=== PATIENT | female | born 1975 | race Caucasian/White ===

== ENCOUNTER 2019-04-13 00:25 | Emergency (ER) | payer OTHER ==
[~2019-04-13] VITALS: Ht 157.5 cm; Wt 103.4 kg
[2019-04-13] MEDS ORDERED: GLIPIZIDE ER10 MG PO (00:39)
[2019-04-13] MEDS ORDERED: PROTONIX40 MG PO (00:40)
[2019-04-13] MEDS ORDERED: WELLBUTRIN XL150 MG PO (00:40)
[2019-04-13] MEDS ORDERED: METFORMIN HCL500 M2 PO (00:40)
[2019-04-13] MEDS ORDERED: PROZAC40 MG PO (00:40)
[2019-04-13] MEDS ORDERED: OXYTROL FOR WO1 EACH TD (00:41)
[2019-04-13] MEDS ORDERED: ZITHROMAX250 MG PO (04:40)
[2019-04-13] MEDS ORDERED: PROVENTIL HFA6.7 GM INH (04:40)
[2019-04-13] MEDS ORDERED: PREDNISONE20 MG PO (04:40)
[2019-04-13] MEDS ORDERED: ALBUTEROL2.5 MG/3 M INH (04:40)
--- NOTE | 2019-04-14 21:31 | EKG ---
[facility] [address] [facility] [place] [address] Signed Sinus tachycardia Otherwise normal ECG No previous ECGs available Confirmed by DIMITRY GELLER MD ([id number]) on 04/14/2019 9:31:44 PM Electronically Signed By: DIMITRY GELLER MD 04/14/19 2131 PATIENT NAME: SEN LANGSTON Electrocardiogram DATE OF : 75 PHYSICIAN: DIMITRY GELLER MD REPORT #: [id number] REPORT IS CONFIDENTIAL AND NOT TO BE RELEASED WITHOUT AUTHORIZATION
== END 2019-04-13 05:00 | disposition home or self-care (01) ==
LOC: ED 00:25
DX: J44.1 Chronic obstructive pulmonary disease with (acute) exacerbation (principal); J06.9 Acute upper respiratory infection, unspecified; E11.65 Type 2 diabetes mellitus with hyperglycemia; Z87.891 Personal history of nicotine dependence; Z88.2 Allergy status to sulfonamides
CPT/HCPCS: 71045; 80053; 82947; 83735; 84484; 85025; 85379; 93005; 93010; 94640; 96374; 96375; 99285-25; J0456; J1815; J2930; J7060

== ENCOUNTER 2019-07-28 15:58 | Emergency (ER) | payer OTHER ==
[~2019-07-28] VITALS: Ht 157.5 cm; Wt 103.4 kg
[~2019-07-28 15:58] MED LIST: ALBUTEROL2.5 MG/3 M INH; GLIPIZIDE ER10 MG PO; METFORMIN HCL500 M2 PO; OXYTROL FOR WO1 EACH TD; PREDNISONE20 MG PO; PROTONIX40 MG PO; PROVENTIL HFA6.7 GM INH; PROZAC40 MG PO; WELLBUTRIN XL150 MG PO; ZITHROMAX250 MG PO
[2019-07-28] MEDS ORDERED: CLINDAMYCIN HC300 MG PO (18:29)
== END 2019-07-28 18:56 | disposition home or self-care (01) ==
LOC: ED 15:58
DX: L03.314 Cellulitis of groin (principal); E11.9 Type 2 diabetes mellitus without complications; J44.9 Chronic obstructive pulmonary disease, unspecified; F17.200 Nicotine dependence, unspecified, uncomplicated; Z88.2 Allergy status to sulfonamides; Z79.52 Long term (current) use of systemic steroids; Z79.899 Other long term (current) drug therapy; Z79.84 Long term (current) use of oral hypoglycemic drugs
CPT/HCPCS: 99283; 99406

== ENCOUNTER 2019-07-31 18:44 | Inpatient (IN) | payer OTHER ==
[~2019-07-31] VITALS: Ht 157.5 cm; Wt 98.4 kg
[~2019-07-31 18:44] MED LIST changes: +CLINDAMYCIN HC300 MG PO; -GLIPIZIDE ER10 MG PO; +GLIPIZIDE10 MG PO; +OXYBUTYNIN CHLOR5 MG PO; -OXYTROL FOR WO1 EACH TD; +PROZAC20 MG PO; -PROZAC40 MG PO
--- OUTSIDE RECORDS SUMMARY | 2019-07-31 18:48 | XMS ---
PreManage Notification: SEN LANGSTON Security Parts Remover Events No recent Security Events currently on file CRITERIA MET - [facility] - 2 Visits in 30 Days CARE PROVIDERS There are no care providers on record at this time. Ruben has no Care Guidelines for this patient. Terra VISIT COUNT (12 MO.) [address] [facility] TOTAL 3 NOTE: Visits indicate total known visits. ED/C VISIT TRACKING (12 MO.) 07/31/2019 18:45 [facility] TYPE: Emergency COMPLAINT: - SKIN PROBLEM 07/28/2019 15:58 [facility] TYPE: Emergency COMPLAINT: - POSS ABSCESS 04/13/2019 00:26 [facility] [place] TYPE: Emergency COMPLAINT: - CHEST TIGHTNESS,TINGLING DIAGNOSES: - Allergy status to sulfonamides status - Personal history of nicotine dependence - Acute upper respiratory infection, unspecified - Other chest pain - Type 2 diabetes mellitus with hyperglycemia - Chronic obstructive pulmonary disease with (acute) exacerbation INPATIENT VISIT TRACKING (12 MO.) No inpatient visits to display in this time frame [email or web address]
--- NOTE | 2019-08-01 15:44 | CONS ---
[facility] [address] [place], [place] [address] Signed DATE OF CONSULTATION: 08/01/2019 CHIEF COMPLAINT: Left groin pain. HISTORY OF PRESENT ILLNESS: Mini is a 43-year-old, obese, diabetic female, who has at least six days of pain and swelling in the left groin. It is erythematous and warm. She has been through this previously when she lived in [place]. She [facility] and the NuGauze dressing had fallen out. Apparently, a surgeon then drained and placed a drain underneath her skin. She has now moved out to [place], [place]. She had been to the emergency room about 6 days ago and started on some clindamycin. It has continued to get worse. She came back to the emergency room and of course was admitted overnight to the Internal Medicine Service. Her white count is already better from 16 down to 12.6. Her lactic acid was little high at 2.4. It is now improved at 1.2. Blood cultures were drawn. Blood sugars were initially 505, down into the 300s, and this morning it was 177. In the meantime, she received Rocephin and vancomycin. I have been asked to see her as a general surgeon on-call. She had an ultrasound done and there was a fluid collection of 4 cm x 0.7 cm x 1.1 cm in that left groin. Overall, she has improved. PAST MEDICAL HISTORY: Diabetes, COPD, bronchitis, gastroesophageal reflux disease, urinary urgency, depression and anxiety. PAST SURGICAL HISTORY: Includes incision and drainage of left groin abscess in 2016. SOCIAL HISTORY: She smokes pack of cigarettes a day. She does not drink. Mini prefers the [facility]. FAMILY HISTORY: Diabetes, cardiomyopathy, ulcerative colitis, non-Hodgkin's lymphoma, depression, and substance abuse. REVIEW OF SYSTEMS: She had 10 systems reviewed and really nothing new to add. ALLERGIES: Sulfa caused her nausea and she prefers not to take narcotics and generally uses ibuprofen. Electronically Signed By: RAMOS LANDIN MD 08/01/19 1544 PATIENT NAME: MINI LANGSTON CONSULTATION DATE OF : 75 REPORT #: [id number] PHYSICIAN: RAMOS LANDIN MD PCP: DIMITRY GELLER MD REPORT IS CONFIDENTIAL AND NOT TO BE RELEASED WITHOUT AUTHORIZATION [facility] [address] [place] [id number] Signed MEDICATIONS: Prednisone 40 mg p.o. daily for the last 4 days for bronchitis, azithromycin, albuterol, clindamycin, glipizide, metformin, fluoxetine, bupropion, Protonix, and oxybutynin. PHYSICAL EXAMINATION: VITAL SIGNS: Blood pressure 112/66, heart rate 92, respiratory rate 20, temperature 98.2. She is 98% on room air. She is 5 feet 2 inches at 98 kg. GENERAL: Mini is a 43-year-old female, lying supine in her ICU bed. Our nurse is with us currently. She does not appear systemically ill or toxic. She is very attentive and actually a pretty good historian. She gave me quite a bit of detail of her experience in [place]. LUNGS: Clear to auscultation bilaterally. HEART: Regular rate and rhythm without murmurs. ABDOMEN: Obese, but soft. In the left groin, right in the crease, she has an area of 3 or 4 cm very indurated, very warm, very tender and it spreads out 10-12 cm from that. I see a couple of punctate areas in the skin, but no obvious draining pus at this point. LABORATORY DATA: Her white blood count was 16 and is now down to 12.6, hemoglobin is 14, is now 12.7, neutrophils are 64. BUN 7, creatinine 0.49, glucose was 505, it is now 177. Lactic acid was 2.4, it is now 1.2. Liver function tests are unremarkable. Albumin is good at 3.8. Her blood cultures were drawn yesterday and pending. Hemoglobin A1c is pending. RADIOGRAPHIC STUDIES: An ultrasound of that groin was performed and she has a 4 cm x 0.7 cm x 1.1 cm fluid collection. ASSESSMENT AND PLAN: Mini is a 43-year-old, obese, diabetic female, who presents with recurrent left groin abscess. I explained to Mini, we are going to take her down to the operating room under general anesthesia, then we will open this up and use packing. She specifically requested no drain. That is fine. This can heal in secondarily. She will need to be in the hospital at least a few days for the IV antibiotics and she can be transitioned over to p.o. antibiotics, specifically with respect to the wound cultures that we will take at the time of surgery. She has expressed understanding and agrees above plan. Ramos Landin MD ALB/MODL /[id number] Electronically Signed By: RAMOS LANDIN MD 08/01/19 1544 PATIENT NAME: MINI LANGSTON CONSULTATION DATE OF : 75 REPORT #: [id number] PHYSICIAN: RAMOS LANDIN MD PCP: DIMITRY GELLER MD REPORT IS CONFIDENTIAL AND NOT TO BE RELEASED WITHOUT AUTHORIZATION [address] [place] [address] Signed cc: Ramos Landin MD Copies: RAMOS LANDIN MD ~ Electronically Signed By: RAMOS LANDIN MD 08/01/19 1544 PATIENT NAME: MINI LANGSTON CONSULTATION DATE OF : 75 REPORT #: [id number] PHYSICIAN: RAMOS LANDIN MD PCP: DIMITRY GELLER MD REPORT IS CONFIDENTIAL AND NOT TO BE RELEASED WITHOUT AUTHORIZATION
--- NOTE | 2019-08-02 06:31 | OR ---
[facility] [address] [place], [place] [address] Signed DATE OF OPERATION: 08/01/2019 SURGEON: Ramos Landin MD PREOPERATIVE DIAGNOSIS: Left inguinal/groin abscess. POSTOPERATIVE DIAGNOSIS: Left inguinal/groin abscess. PROCEDURES PERFORMED: 1. Incision and drainage of left groin abscess. 2. Deep wound cultures. ESTIMATED BLOOD LOSS: None. INDICATIONS: Mini is a 43-year-old, obese, uncontrolled diabetic, who for at least 6 days has had increasing pain, erythema, and warmth in her left groin. She went through this in 2015 while living in [place]. She came to our emergency room when it 1st started and then she was given clindamycin. Unfortunately, she failed her outpatient p.o. antibiotics. She came back to the emergency room and it continued to worsen. She was found to have a white count of 16,000 with a lactic acid of 2.4. Also, blood sugar was 505. An ultrasound was performed, which showed a 4 cm x 0.7 cm x 1.1 cm fluid collection. She was admitted to the Internal Medicine Service. She was given Rocephin and vancomycin. She was hydrated overnight. By morning, she was actually feeling much better. White count was down to 12.6 and her lactic acid had dropped to 1.2. They had her blood sugars all the way down to 177. Blood cultures have been sent yesterday, and of course, they are still pending. I was asked to see her as a general surgeon on-call for consideration of incision and drainage of the abscess. I met with Mini in her ICU room. She described her surgery down in [place]. They left drain in place. She asked me specifically not to use a drain. I explained to Mini we would not be leaving a drain. We will leave the incision open to heal in secondarily and we will use Dakin's soaked gauze at least for the 1st few days to help sterilize the wound with ongoing IV antibiotics. We will adjust that based on her wound cultures. She understands the nature of the surgery. She understands there is risk including, but not limited to bleeding, infection, scarring, change in contour of the skin as well as recurrent abscess in the same or other locations. She has expressed understanding would like to proceed. Electronically Signed By: RAMOS LANDIN MD 08/02/19 0631 PATIENT NAME: MINI LANGSTON OPERATIVE REPORT DATE OF : 75 REPORT #: [id number] PHYSICIAN: RAMOS LANDIN MD PCP: DIMITRY GELLER MD REPORT IS CONFIDENTIAL AND NOT TO BE RELEASED WITHOUT AUTHORIZATION [facility] [address] [place], [place] [address] Signed PROCEDURE NOTE: I met with Mini in the preop area with our preoperative nurse. Mini and I were obviously able to easily identify that area in right in her left groin crease near the femoral nerve artery and vein. We marked that appropriately. After this, Mini was taken in the operating room and placed in the supine position under general endotracheal tube anesthesia. Her legs were brought up in the frog-leg position. Appropriate padding and monitoring were placed. SCDs were utilized. She is on preoperative Lovenox and antibiotics already. No need for a Red catheter. She was then prepped and draped in the usual sterile fashion. We could easily see whether abscess was coming to the surface of the skin right in the groin crease. We used a 3 cm elliptical incision around that area and went down through the indurated tissue until we broke into the abscess cavity. Deep wound cultures were taken. The wound was irrigated and suctioned out until clear with warm antibiotic saline solution. Digital examination was undertaken to break up all loculations. Probably 20-30 mL of pus had been evacuated total. We used a 4 inch wide Kerlix gauze roll soaked in Dakin's solution, and we packed the wound with fat and it was covered with just simple dry gauze and tape. After this, Mini was awakened from anesthesia, extubated in the OR, and taken into recovery room in stable condition. Ramos Landin MD ALB/MODL /[id number] cc: MD Ramos Jarrett MD Copies: DIMITRY GELLER MD, ANDREW L MD ~ Electronically Signed By: RAMOS LANDIN MD 08/02/19 0631 PATIENT NAME: MINI LANGSTON OPERATIVE REPORT DATE OF : 75 REPORT #: [id number] PHYSICIAN: RAMOS LANDIN MD PCP: DIMITRY GELLER MD REPORT IS CONFIDENTIAL AND NOT TO BE RELEASED WITHOUT AUTHORIZATION
[2019-08-02] MEDS ORDERED: QVAR REDIHALE10.6 GM INH (11:20)
[2019-08-02] MEDS ORDERED: SPIRIVA18 MCG INH (11:23)
[2019-08-04] MEDS ORDERED: DOXYCYCLINE HY100 MG PO (10:24)
[2019-08-04] MEDS ORDERED: CLINDAMYCIN HC300 MG PO (10:27)
[2019-08-04] MEDS ORDERED: PROBIOTIC1 EAC1 PO (10:28)
[2019-08-04] MEDS ORDERED: LANTUS100 UNITS/ SUB-Q (10:30)
[2019-08-04] MEDS ORDERED: NICOTINE PATCH1 EACH TD (10:30)
[2019-08-04] MEDS ORDERED: SALINE WOUND W210 M1 MISC (10:35)
== END 2019-08-04 13:07 | disposition home or self-care (01) | DRG 854 ==
LOC: ED 18:44 → CCU 21:37 → MS 08-01 13:04
PROVIDERS: Colon & Rectal Surgery; ADMIT Internal Medicine
PROC: 0J9C0ZZ Drainage of Pelvic Region Subcutaneous Tissue and Fascia, Open Approach (ICD-10-PCS; principal; 2019-08-01 10:00)
DX: A41.89 Other specified sepsis (principal); L03.314 Cellulitis of groin; L02.214 Cutaneous abscess of groin; K52.1 Toxic gastroenteritis and colitis; E66.01 Morbid (severe) obesity due to excess calories; E11.65 Type 2 diabetes mellitus with hyperglycemia; F17.210 Nicotine dependence, cigarettes, uncomplicated; K21.9 Gastro-esophageal reflux disease without esophagitis; J41.0 Simple chronic bronchitis; R39.15 Urgency of urination; F41.8 Other specified anxiety disorders; T38.3X5D Adverse effect of insulin and oral hypoglycemic [antidiabetic] drugs, subsequent encounter; Z91.14 Patient's other noncompliance with medication regimen; Z88.2 Allergy status to sulfonamides; Z79.899 Other long term (current) drug therapy; Z79.52 Long term (current) use of systemic steroids; Z68.39 Body mass index [BMI] 39.0-39.9, adult; Z79.84 Long term (current) use of oral hypoglycemic drugs
CPT/HCPCS: 00400; 36415; 76881; 80048; 80053; 80202; 83036; 83605; 83735; 84100; 85007; 85025; 85032; 85610; 85730; 87040; 94640; 94760; 96365; 96366; 99284-25; 99406; J0696; J1100; J1650; J1815; J1885; J2405; J2704; J3010; J3370; J3475; J7030; J7060; J7120

== ENCOUNTER 2019-12-22 10:35 | Inpatient (IN) | payer OTHER ==
[~2019-12-22] VITALS: Ht 157.5 cm; Wt 96.6 kg
[~2019-12-22 10:35] MED LIST changes: +DOXYCYCLINE HY100 MG PO; +LANTUS100 UNITS/ SUB-Q; +NICOTINE PATCH1 EACH TD; +PROBIOTIC1 EAC1 PO; +QVAR REDIHALE10.6 GM INH; +SALINE WOUND W210 M1 MISC; +SPIRIVA18 MCG INH
--- OUTSIDE RECORDS SUMMARY | 2019-12-22 10:38 | XMS ---
PreManage Notification: SEN LANGSTON Security Awning Maker Events No recent Security Events currently on file CRITERIA MET - Group Notification - [facility] - Has Care Guidelines - History of Sepsis Dx CARE PROVIDERS There are no care providers on record at this time. Ruben has no Care Guidelines for this patient. Care History Medical/Surgical 08/01/2019 [facility] CASE MANAGEMENT REFERRAL MADE- PATIENT HAS [facility] AND NO PCP. E.D. VISIT COUNT (12 MO.) 4 [facility] TOTAL 4 NOTE: Visits indicate total known visits. ED/UCC VISIT TRACKING (12 MO.) 12/22/2019 10:36 [facility] TYPE: Emergency COMPLAINT: - ABCESS ON BACKSIDE 07/31/2019 18:45 [facility] TYPE: Emergency COMPLAINT: - SKIN PROBLEM 07/28/2019 15:58 [facility] TYPE: Emergency COMPLAINT: - POSS ABSCESS DIAGNOSES: - Cellulitis of groin - Chronic obstructive pulmonary disease, unspecified - 1 Type 2 diabetes mellitus without complications - manager wellness (current) use of systemic steroids - Other conveyancer (current) drug therapy - Cutaneous abscess of groin - long-term (current) use of oral hypoglycemic drugs - Nicotine dependence, unspecified, uncomplicated - Allergy status to sulfonamides status 04/13/2019 00:26 [facility] TYPE: Emergency COMPLAINT: - CHEST TIGHTNESS,TINGLING DIAGNOSES: - Allergy status to sulfonamides status - Personal history of nicotine dependence - Acute upper respiratory infection, unspecified - Other chest pain - 1 Type 2 diabetes mellitus with hyperglycemia - Chronic obstructive pulmonary disease w (acute) exacerbation INPATIENT VISIT TRACKING (12 MO.) 07/31/2019 21:[address] [facility] [place] TYPE: Medical Surgical COMPLAINT: - SEPSIS DIAGNOSES: - Cellulitis of groin - Allergy status to sulfonamides status - Body mass index (BMI) 39.0-39.9, adult - long-term (current) use of oral hypoglycemic drugs - Cutaneous abscess of groin - Other specified anxiety disorders - Nicotine dependence, cigarettes, uncomplicated - Body mass index (BMI) 39.0-39.9, adult - Gastro-esophageal reflux disease without esophagitis - Other conveyancer (current) drug therapy - Urgency of urination - Toxic gastroenteritis and colitis - long-term (current) use of systemic steroids - Cutaneous abscess of groin - Morbid (severe) obesity due to excess calories - Sepsis, unspecified organism Sepsis, u - Patient's other noncompliance with medication regimen - Cellulitis of groin - Simple chronic bronchitis - Toxic gastroenteritis and colitis - 1 Type 2 diabetes mellitus with hyperglycemia - Other specified sepsis Other spe - Nicotine dependence, cigarettes, uncomplicated - manager wellness (current) use of systemic steroids - Urgency of urination - Other conveyancer (current) drug therapy - Gastro-esophageal reflux disease without esophagitis - Other specified sepsis Other spe - Adverse effect of insulin and oral hypoglycemic drugs, subs - long-term (current) use of oral hypoglycemic drugs - Allergy status to sulfonamides status - Simple chronic bronchitis - 1 Type 2 diabetes mellitus with hyperglycemia - Other specified anxiety disorders - Patient's other noncompliance with medication regimen - Adverse effect of insulin and oral hypoglycemic drugs, subs - Morbid (severe) obesity due to excess calories [email or web address]
[2019-12-22] MEDS ORDERED: NOVOLOG100 UNIT/2 SQ (11:16)
--- NOTE | 2019-12-22 12:17 | NUR ---
REPORT RECIEVED FROM NANCY PAREDES, IN ER.
--- NOTE | 2019-12-22 12:59 | NUR ---
PATIENT ADMITTED TO MED SURG.
--- NOTE | 2019-12-22 13:04 | NUR ---
FINGER STICK BLOOD GLUCOSE DONE AND IS 497.
--- NOTE | 2019-12-22 13:47 | NUR ---
TODD GANDHI FROM LAB CALLED AT 1342 FOR CRITICAL LAB VALUE OF BLOOD GLUCOSE OF 567. CCU CALLED AND PRIMARY NURSE NOTIFIED. DR GELLER CALLED AT 1344 AND ALSO NOTIFIED, NO NEW ORDERS.
--- NOTE | 2019-12-22 13:50 | NUR ---
PT ARRIVES TO CCU VIA BED WITH TWO MED/SURG NURSES. PT IS ALERT AND ORIENTED AT THIS TIME. MOTHER IS AT THE BEDSIDE.
--- NOTE | 2019-12-22 14:10 | NUR ---
SECOND IV SITE OBTAINED BY SHERRIE CRUZ. IV BOLUS RUNNING AT THIS TIME.
--- NOTE | 2019-12-22 14:17 | NUR ---
BLOOD CULTURES DRAWN. LONG ACTING AND SHORT ACTING INSULIN GIVEN. PT BASSAM WELL.
--- NOTE | 2019-12-22 14:30 | NUR ---
IN ROOM TO EXAMINE PT, THIS RN AND SHARLA CHYRON OPERATOR AT THE BEDSIDE.
--- NOTE | 2019-12-22 15:00 | NUR ---
PT PLACED ON 2L VIA OXY MASK FOR DESAT TO 88-87% ON ROOM AIR
--- NOTE | 2019-12-22 15:36 | NUR ---
LATE NOTE FROM 1327 DR. GELLER IN TO SEE PATIENT, AFTER CALL TO DR. LANDIN REGARDING BG FINGER STICK OF 497. LR BOLUS INFUSING PER DR. GELLER. PATIENT IS TO TRANSFER TO CCU R/T SEPSIS.
--- NOTE | 2019-12-22 16:42 | NUR ---
PT LAYING IN BED RESTING WATCHING TV WITH HER PARENTS AT THE BEDSIDE.
--- NOTE | 2019-12-22 18:21 | NUR ---
PT SITTING UP IN BED WATCHING TV, ABLE TO BASSAM BLOOD DRAW EASILY. PT GIVEN INSULIN. PT GIVEN SUGAR FREE LEMONAID AND CHICKN BROTH PER HER REQUEST. PT REMAINS ALERT AND ORIENTED X4, RATES PAIN AT 2/10, DENIES NAUSEA AND SOB. PT APPEARS CALM AND RELAXED.
--- NOTE | 2019-12-22 19:25 | NUR ---
SHIFT REPORT RECEIVED. PATIENT RESTING IN BED. FAMILY AT BEDSIDE. PATIENT DROWSY. DENIES PAIN OR ANY NEEDS.
--- NOTE | 2019-12-22 20:00 | NUR ---
PATIENT IS ORIENTED, BUT DROWSY. DENIES PAIN. ASSISTED PATIENT TO REPOSITION IN BED. LUNGS ARE COARSE THROUGHOUT WITH EXP WHEEZES IN CELI UPPER LOBES. NEB TREATMENT PROVIDED PER RT REQUEST. PATIENT CONTINUES TO SOUND COARSE THROUGHOUT, WITHOUT WHEEZES. TOLERATES ROOM AIR WHILE AWAKE. PATIENT APPEARS FLUSHED, HOT TO THE TOUCH. ORAL TEMP 99.1 F. ROOM TEMP REDUCED PER REQUEST. IV FLUIDS AND ABX PER ORDER, IV SITES WNL X2. DISCUSSED ABX ORDERS WITH PATIENT AND HER MOTHER. PITT CARE PROVIDED. NYSTATIN APPLIED TO RYAN AREA, WHICH IS RED. PATIENT REQUEST JELLO WHICH WAS PROVIDED. NO OTHER NEEDS AT THIS TIME.
--- NOTE | 2019-12-22 20:00 | NUR ---
PATIENT IS ORIENTED, BUT DROWSY. DENIES PAIN. ASSISTED PATIENT TO REPOSITION IN BED. SMALL AMOUNT OF YELLOW DRAINAGE NOTED FROM WOUND ON RIGHT BUTTOCK. CHUCKS PAD PLACED ON PATIENT. LUNGS ARE COARSE THROUGHOUT WITH EXP WHEEZES IN CELI UPPER LOBES. NEB TREATMENT PROVIDED PER RT REQUEST. PATIENT CONTINUES TO SOUND COARSE THROUGHOUT, WITHOUT WHEEZES. TOLERATES ROOM AIR WHILE AWAKE. PATIENT APPEARS FLUSHED, HOT TO THE TOUCH. ORAL TEMP 99.1 F. ROOM TEMP REDUCED PER REQUEST. IV FLUIDS AND ABX PER ORDER, IV SITES WNL X2. DISCUSSED ABX ORDERS WITH PATIENT AND HER MOTHER. PITT CARE PROVIDED. NYSTATIN APPLIED TO RYAN AREA, WHICH IS RED. PATIENT REQUEST JELLO WHICH WAS PROVIDED. NO OTHER NEEDS AT THIS TIME.
--- NOTE | 2019-12-22 20:42 | NUR ---
NOTIFIED OF CT SCAN RESULTS. NO NEW ORDERS.
--- NOTE | 2019-12-22 21:27 | NUR ---
IV FLUSHED ON UPPER LEFT FOREARM. SITE WNL. VANCO STARTED PER ORDERS. EDUCATED PATIENT TO ALERT STAFF TO ANY CONCERNS OR PAIN AT IV SITE. PATIENT VERBALIZED UNDERSTANDING. NO NEEDS AT THIS TIME. BLOOD GLUCOSE 207, SSI PER ORDERS.
--- NOTE | 2019-12-23 00:05 | NUR ---
PATIENT HAS BEEN SLEEPING SOUNDLY. VS STABLE. PATIENT WOKE EASILY TO VOICE. DENIES PAIN OR ANY NEEDS. IV FLUIDS PER ORDER, SITE WNL. ACCU CHECK, BG 201. SSI PER ORDERS. URINE OUTPUT QS, SHEN COLORED. ALLOWED PATIENT TO REST. CALL LIGHT IN REACH.
--- NOTE | 2019-12-23 02:00 | NUR ---
PATIENT SLEEPING SOUNDLY. ABX STARTED PER ORDER. SITES WNL X2.
--- NOTE | 2019-12-23 03:20 | NUR ---
UP TO BSC WITH STAND BY ASSIST. HAD LIQ STOOL. WHILE DOING RYAN CARE FOR PT COULD PALP FIRM MASS R BUTTOCKS. RYAN AREA IS VERY SINSITIVE. PT COUHG WHILE UP AND FEELS LIKE SHE IS GOING TO HAVE AN ASTHMA ATTACK. RT CALLED FOR NEB TX PT REUQESTING RESCUE INHALER.
--- NOTE | 2019-12-23 03:30 | NUR ---
PATIENT BACK TO BED AFTER HAVING BM. REPORTS PAIN WITH MOVEMENT IN RIGHT GLUTEAL AREA. DENIES NEED FOR PRN MEDS. ASSISTED TO POSITION FOR COMFORT. PATIENT FEELS SLIGHTLY SOB. REQUESTED TO USE HOME INHALER. RT CONTECTED FOR PRN NEB TREATMENT INSTEAD. PATIENT REPORTS IMPROVEMENT POST TREATMENT. BLOOD GLUCOSE IMPROVED 148, SSI PER ORDER. URINE OUTPUT QS. URINE IS SHEN COLORED.
--- NOTE | 2019-12-23 05:49 | NUR ---
PATIENT DESAT TO 80'S WHILE SLEEPING. 2L NC IN PLACE.
--- NOTE | 2019-12-23 06:30 | NUR ---
PATIENT REPORTS BURNING AND ITCHING IN GROIN AND RYAN AREA. NYSTATIN POWER AND DISCHARGE CLEANED WITH BERRIER WIPES AND SKIN PROTECTANT APPLIED. PATIENT REPORTS SOME RELIEF. PATIENT SIGNED CONSENT AND DENIES ANY QUESTIONS. PRE-PROCEDURE WIPES PROVIED. PATIENT REQUEST WAITING TO WIPE DOWN AT THIS TIME. FAMILY IN TO VISIT PATIENT.
--- NOTE | 2019-12-23 08:09 | CONS ---
[facility] [address], [place] [address] Signed DATE OF CONSULTATION: 12/22/2019 CHIEF COMPLAINT: Right gluteal swelling and pain. HISTORY OF PRESENT ILLNESS: Mini is a 44-year-old obese diabetic female, who I met in July of last year. At that time, she had a groin abscess that required incision and drainage. She had presented in almost identical manner. She tells me, three days ago, she met with her rounding machine operator and had a full pelvic exam. At that time, she said she was feeling fine. There was some concern she might have perineal eczema rather than moist fungal type infection. She was given what sounds like triamcinolone cream to be used in that area. She has talked about Tuesday and earlier today where the pain and swelling to the right side of her gluteal crease came on rather rapidly. As before, she tells us that she is noncompliant with her medications and checking her blood sugars. Her mom realized her mouth was quite dry and that she was dehydrated. She brought her to the emergency room for evaluation. I had been called earlier today by the emergency room physician about a recurrent perirectal/perianal abscess. The patient had eaten at around 9:30 this morning, so we are planning to do her surgery around 3 or 3:30 in the afternoon. After discussion with the ER physician, we put her on the Med-Surg floor for observation. The nurse did call me with concerns of tachycardia and blood sugars between 450 and over 500. Consequently, we had our Internal Medicine Service see her right away and I came directly to the hospital. In the meantime, she has had an IV started and she is receiving Zosyn. She will be getting her Flagyl soon. She has been started on her insulin and she has been ordered normal saline 3 L bolus. In the meantime, her labs have come back, and we can see the white blood cell count is up at 24,000, but she is certainly dehydrated with a hemoglobin 17, although the BUN and creatinine are fine, but her blood sugar is 567 and the lactic acid is pending along with the blood cultures. Overall, she is already starting to feel better with the IV fluids. 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 PAST SURGICAL HISTORY: Incision and drainage of left groin abscess in 2015 and again in July 2019. SOCIAL HISTORY: She smokes a pack of cigarettes a day. She does not drink. She prefers our local [facility]. She lives with her mother. She does have upper and lower dentures, but generally just wears the upper dentures. 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 Dr. Dimitry Geller is her primary care provider. Electronically Signed By: RAMOS LANDIN MD 12/23/19 0809 PATIENT NAME: MINI LANGSTON CONSULTATION DATE OF : 75 REPORT #: [id number] PHYSICIAN: RAMOS LANDIN MD PCP: DIMITRY GELLER MD REPORT IS CONFIDENTIAL AND NOT TO BE RELEASED WITHOUT AUTHORIZATION [address] [address] Signed FAMILY HISTORY: Diabetes, cardiomyopathy, ulcerative colitis, non-Hodgkin's lymphoma, depression, and substance abuse. REVIEW OF SYSTEMS: She had 10 systems reviewed and the pertinent positives are included in history of present illness. Unfortunately, she remains noncompliant with her medications including her insulin. She told me that metformin gave her diarrhea, so that has been discontinued. ALLERGIES: Sulfa cause nausea. Metformin cause diarrhea. She avoids narcotics and tries to use ibuprofen. MEDICATIONS: NovoLog, Lantus, albuterol, fluoxetine, and previously glipizide and bupropion, Protonix and oxybutynin. PHYSICAL EXAMINATION: VITAL SIGNS: Blood pressure 113/64, heart rate 118, respiratory rate 22, temperature is 98.4 degrees. She is 95% on room air. She is 5 feet 2 inches at 96 kg. GENERAL: Mini is a 44-year-old female, lying in the left lateral decubitus position in her ICU bed. Her mom is in the room along with her nurse. Mini has blonde hair and light skin and she is red and flushed. She has had some type of rash on her right hand. LUNGS: Clear to auscultation bilaterally. HEART: Tachycardic without murmurs. ABDOMEN: Obese but soft. EXTREMITIES: The left groin is well healed without any local signs or symptoms of infection. With our nurse in the room, we examined down to the perineum and she does have moist erythematous skin, but I do not see any scaling or cracking or keratosis of the skin. We had to roll back on the left side and I can feel the 4, maybe 5 cm indurated circular area just to the right of her gluteal crease, somewhat high actually. This would be quite removed for a perianal and/or perirectal abscess. We did do a digital rectal exam with the nurse present and her mom present and she has some tiny external skin tags, but good sphincter tone. I cannot palpate anything specific circumferentially around the anus that would suggest this is a classic perianal or perirectal abscess. LABORATORY DATA: [place] [address], hemoglobin 17, neutrophils 86, bands are 4, BUN 8, creatinine 0.74, glucose 567, calcium 10.4, albumin is 4.4. Her liver function tests are negative with an alkaline phosphatase slightly up at 176. Her lactic acid is pending. The blood cultures were drawn and of course are pending. Electronically Signed By: RAMOS LANDIN MD 12/23/19 0809 PATIENT NAME: MINI LANGSTON CONSULTATION DATE OF : 75 REPORT #: [id number] PHYSICIAN: RAMOS LANDIN MD PCP: DIMITRY GELLER MD REPORT IS CONFIDENTIAL AND NOT TO BE RELEASED WITHOUT AUTHORIZATION [facility] [address] [place] [id number] Signed RADIOGRAPHIC STUDIES: None currently, although, CT scan of abdomen and pelvis has been entertained. ASSESSMENT AND PLAN: Mini is a 44-year-old, obese, noncompliant diabetic female, who presents with a right gluteal abscess close to her gluteal crease. She is also hyperglycemic and quite dehydrated. I have reviewed her previous records and I have reviewed all this with her mom and with Dr. Geller and the nursing staff. At this point, we are going to continue to hydrate her, continue her antibiotics, and plan on doing a CT scan of abdomen and pelvis later today. I think by morning, she will be much more stable and we will be able to take her to the operating room for incision and drainage of that abscess. I explained to Mini that it is extremely important that she be compliant with her medications, in particular her insulin. She is obviously having infections associated with her hyperglycemia. She and her mom have expressed understanding and agreed above plan. MD HAYDE Rodriguez/ALFREDOL /[id number] cc: MD Ramos Jarrett, MD Gennaro Salamanca DO Copies: DIMITRY GELLER MD, ANDREW L MD WARD, JAMES D DO ~ Electronically Signed By: RAMOS LANDIN MD 12/23/19 0809 PATIENT NAME: MINI LANGSTON CONSULTATION DATE OF : 75 REPORT #: [id number] PHYSICIAN: RAMOS LANDIN MD PCP: DIMITRY GELLER MD REPORT IS CONFIDENTIAL AND NOT TO BE RELEASED WITHOUT AUTHORIZATION
--- NOTE | 2019-12-23 08:15 | NUR ---
IV SITES ARE INTACT, NO REDNESS OR SWELLING NOTED, PT REPORTS SOME SLIGHT DISCOMFORT WITH FLUSH, FLUIDS AND FLUSHES INFUSE EASILY. PT IS ALERT AND ORIENTED X4, DENIES NAUSEA, SOB, AND PAIN.
--- NOTE | 2019-12-23 09:06 | NUR ---
OR NURSES CONNIE TAKING PT BACK TO SURGERY DEPARTMENT. PT IS ALERT AND ORIENTED X4, DENIES NAUSEA AND SOB, RATES PAIN AT 2/10 IN RT BUTTOCK.
--- NOTE | 2019-12-23 10:00 | NUR ---
PT IS BACK IN ROOM 129, PACU PHASE OF RECOVERY, LIGIA CRUZ IS RECOVERING PT AT THIS TIME.
--- NOTE | 2019-12-23 10:07 | NUR ---
12/23/19 Cherelle Bartlett 1001: PT ARRIVES TO CCU RM 129 FROM OR COUGHING WITH 10 L O2 VIA MASK IN PLACE. PT SATS GREATER THAN 94% ON O2. PT REACHING AT MASK AND ITCHING NOSE, REDIRECTED TO CDB. PT ABLE TO AROUSE TO VERBAL STIMULI, SHAKES HEAD "NO" WHEN ASKED ABOUT PAIN.
--- NOTE | 2019-12-23 10:30 | NUR ---
FULL REPORT RECIEVED FROM LIGIA RN, PT NOW TRANSFERED BACK TO CCU PT. ALL QUESTIONS ANSWERED.
--- NOTE | 2019-12-23 11:57 | NUR ---
PT SLEEPING SOUNDLY AT THIS TIME, VITALS ARE WNL.
--- NOTE | 2019-12-23 13:59 | NUR ---
pt dozing off and on. vitals wnl. call light within reach.
--- NOTE | 2019-12-23 16:05 | NUR ---
DRAW SHEET AND JU PAD CANGED UNDER PT, MODERATE AMOUNT OF SEROUS DRAINAGE NOTED ON PAD. WOUND PACKING AND UNDERWEAR IN PLACE. PT BASSAM ROLLING FROM SIDE TO SIDE WELL. PT REMAINS ALERT AND ORIENTED X4, DENIES PAIN, NAUSEA, AND SOB.
--- NOTE | 2019-12-23 16:59 | OR ---
[facility] [address] [place], [place] [address] Signed DATE OF OPERATION: 12/23/2019 SURGEON: Ramos Landin MD PREOPERATIVE DIAGNOSIS: Right gluteal abscess with cellulitis. POSTOPERATIVE DIAGNOSES: 1. Right gluteal abscess with cellulitis. 2. Pruritus ani/perineum. PROCEDURES PERFORMED: 1. Incision and drainage, right gluteal abscess. 2. Deep wound cultures. ESTIMATED BLOOD LOSS: None. INDICATIONS: This is a 44-year-old, obese, uncontrolled diabetic female, who came to us last fall with recurrent abscess in the left groin that required incision and drainage and significant medical attention. Unfortunately, she is noncompliant with her medications including her insulin. Her mom realized she was quite dehydrated, ended up bringing her to the emergency room. Her blood sugars were between 415/550. She was also having pain around the anus in the perineum. There was swelling along the right gluteal crease quite removed from the anus. She had been to her industrial safety and health technician just two and half days prior and apparently on her pelvic exam everything was fine other than the pruritus ani. She had been given some triamcinolone cream with concerns for eczema. I have been called by the emergency room physician. She was admitted to hospital. We did get her Medical Service involved to help with insulin so forth. She has been on vancomycin, Unasyn, and Flagyl. In less than 24 hours, she has already markedly improved. When she came, her lactic acid was 2.4. I can see this morning, she looks and feels much better. She is much more hydrated. She did have a CT scan yesterday and it does show inflammatory changes along the right gluteal area. No obvious large abscess. Her white count is already better from 24 down to 18.9. Blood sugars have come down to 149. Her blood cultures are pending. The repeat lactic acid 4 hours later was about the same. I suspect this morning, it would be much better. I had discussed all this with Mini and her mom in detail. They are quite familiar with this whole process. I explained despite the CT scan, I thought it was worthwhile to perform an exam under anesthesia as well as incise and drain that area to see if there is any pus pockets that needed to be Electronically Signed By: RAMOS LANDIN MD 12/23/19 1659 PATIENT NAME: MINI LANGSTON OPERATIVE REPORT DATE OF : 75 REPORT #: [id number] PHYSICIAN: RAMOS LANDIN MD PCP: DIMITRY GELLER MD REPORT IS CONFIDENTIAL AND NOT TO BE RELEASED WITHOUT AUTHORIZATION [facility] [address] [place], [place] [address] Signed drained. We reviewed the surgery in detail. They understand there is risk including, but not limited to bleeding, infection, scarring, change in contour of the skin as well as need for possible additional surgeries and/or recurrent abscesses in the future. They had expressed understanding and wished to proceed. PROCEDURE NOTE: Mini was taken down into our operating room and placed in the left lateral decubitus position under general LMA anesthesia. She was on her preoperative antibiotics as well as her Lovenox. SCDs were utilized. She already had a Red catheter in place. After this, we were able to clean her entire perineum with help of moist laps. She has the classic appearance of the pruritus ani/perineum. It is beefy red throughout with multiple islands of granulation tissue. We could feel the indurated area on the right gluteal crease. Digital rectal exam was performed and this appears to be quite remote on physical exam from the rectum, although I could push the rectum up close to that area. After this, she had been prepped and draped in the usual sterile fashion. We made a slightly oblique incision over that area with help of the cautery and about 4 to 5 mL of pus was evacuated. The pus was tracking flat in the plane of the adipose tissue. We followed it with our hemostat and a Pean clamp and opened it up until all the pus was evacuated. We had taken deep wound cultures. Local anesthetic was then injected into the wound. The wound was irrigated and suctioned out with warm antibiotic saline solution. We packed the wound with full-strength Dakin's solution soaked gauze. We then used our clotrimazole and betamethasone cream. We placed out overall the affected air from the gluteal crease past the anus and up on both areas of the vulva. This was covered with dry gauze and then mesh underwear. Mini was then rotated in the supine position, weaned from anesthesia, extubated in the OR, and taken to recovery room in stable condition. Ramos Landin MD ALB/MODL /[id number] cc: DO Ramos Sanchez MD Electronically Signed By: RAMOS LANDIN MD 12/23/19 1659 PATIENT NAME: MINI LANGSTON OPERATIVE REPORT DATE OF : 75 REPORT #: [id number] PHYSICIAN: RAMOS LANDIN MD PCP: DIMITRY GELLER MD REPORT IS CONFIDENTIAL AND NOT TO BE RELEASED WITHOUT AUTHORIZATION [address], [place] [address] Signed Dimitry Geller MD Copies: ISABEL LANGE ANDREW L MD REDDY, LOHITH VEERAPPA MD ~ Electronically Signed By: RAMOS LANDIN MD 12/23/19 1659 PATIENT NAME: MINI LANGSTON OPERATIVE REPORT DATE OF : 75 REPORT #: [id number] PHYSICIAN: RAMOS LANDIN MD PCP: DIMITRY GELLER MD REPORT IS CONFIDENTIAL AND NOT TO BE RELEASED WITHOUT AUTHORIZATION
--- NOTE | 2019-12-23 17:16 | NUR ---
PT SITTING UP IN BED EATING DINNER AND WATCHING TV. PT DENIES PAIN, NAUSEA, AND SOB AT THIS TIME. PT VITALS ARE WNL, STILL REQUIRES 02 VIA NC AT 2-3 L DURING SLEEP. PT IV SITES ARE INTACT, NO REDNESS OR SWELLING NOTED, PT REPORTS SLIGHT TENDERNESS AT BOTH SITE BUT NO PAIN. PT REMAINS ALERT AND ORIENTED X4, COOPERATIVE AND POLITE.
--- NOTE | 2019-12-23 20:12 | NUR ---
AWAKE, SITTING UP IN BED VISITING WITH FAMILY. GIVEN WRITTEN INFORMATION ON ANAL PRURITIS. PT'S MOM READING IT TO PT.
--- NOTE | 2019-12-23 21:14 | NUR ---
RYAN, CATH CARE DONE. RYAN AREA IS LESS REDDENED. CREAM APPLIED. PACKING TO BUTTOCKS WOUND HELD IN PLACE BY NET PANTIES, HAS SEROUS DRAINAGE.
--- NOTE | 2019-12-23 23:53 | NUR ---
PT SLEEPING. 02 OUT OF NARES AND SAT OCT TO , 02 REPLACED. PT AWAKENS BREIFLY, FOLLOWS COMMANDS AND THEN BACK TO SLEEP.
--- NOTE | 2019-12-24 01:58 | NUR ---
HAS BEEN SLEEPING WELL. [address] AND MAINTAINING SATS 90-92%. AWAKE BRIEFLY WHEN ABX HUNG. NO C/O.
--- NOTE | 2019-12-24 03:00 | NUR ---
AWAKENED COUGHING, FEELING LIKE CAN'T CATCH BREATH AND REQUESTING NEB. BREATH TONES DO HAVE GOOD AIR EXCHANGE WITH SOME RONCHI. RT CALLED AND NEB STARTED.
--- NOTE | 2019-12-24 03:32 | NUR ---
TOLE NEB WELL AND FEELING BETTER. FEW RHONCHI AND COUGH IS LESS. FEELS NEED TO HAVE BM. ASSISTED TO BSC, PT HAD MED LIQ GREEN STOOL. OUTER GAUZE OFF BUT PACKING TO R BUTTOCK WOUND IN PLACE. OUTER GAUZE REPLACED. BACK TO BED. PT REQUESTING TORRADOL, GIVEN 30MG. PAIN 8/10. AFTER GETTING BACK TO BED PAIN ALSO HELPED WITH POSITION OF BEDING ON SIDE.
--- NOTE | 2019-12-24 05:26 | NUR ---
HAS BEEN ABLE TO SLEEP, LABS DRAWN. GIVEN BLANKET.
--- NOTE | 2019-12-24 05:57 | NUR ---
DR LANDIN IN TO SEE PT. PITT CATH DC'D WITH BALLOON INTACT.
--- NOTE | 2019-12-24 08:15 | NUR ---
Spoke with Mini and her mom. Pt eating breakfast. Complaint of soreness, but doing ok. Plans on discharging home with mom and dad, whom she resides with. Denies need for any DME. Pt and mom deny financial issues of use of food pantry or [employer]col.
--- NOTE | 2019-12-24 08:28 | NUR ---
LAB HERE TO OBTAIN ELIZABTEHO THROUGH AT THIS TIME.
[2019-12-24] MEDS ORDERED: VENTOLIN HFA18 GM INH (08:48)
[2019-12-24] MEDS ORDERED: CHANTIX1 MG PO (08:49)
[2019-12-24] MEDS ORDERED: BENZONATATE100 MG PO (08:49)
[2019-12-24] MEDS ORDERED: LANTUS100 UNITS/ SUB-Q (09:03)
[2019-12-24] MEDS ORDERED: OXYBUTYNIN CHLOR5 MG PO (09:04)
[2019-12-24] MEDS ORDERED: PROTONIX40 MG PO (09:09)
--- NOTE | 2019-12-24 09:10 | NUR ---
PT BACK IN BED, ATE BKF AND TOLERATED WELL SO FAR THIS AM. PT MOTHER IS AT THE BEDSIDE. BOTH WATCHING TV AT THIS TIME. PT HAS BEEN TRANSFERED TO THE MS FLOOR THI AM. BUT AT THIS TIME SHE WILL REMAIN IN THE UNIT TILL BED SPACE IS OPEN
[2019-12-24] MEDS ORDERED: TURMERIC500 M2 PO (09:12)
[2019-12-24] MEDS ORDERED: CINNAMON500 MG PO (09:12)
--- NOTE | 2019-12-24 09:14 | NUR ---
Med rec completed. Patient has a hard time remembering to take medications. Re-enforced the importance of being adherent.
--- NOTE | 2019-12-24 11:54 | NUR ---
PT SITTING UP IN BED EATTING LUNCH AT THIS TIME.
--- NOTE | 2019-12-24 13:31 | NUR ---
Report received from Stormy RN at 1pm. Patient resting in bed, Stormy had just completed dressing change.
--- NOTE | 2019-12-24 14:26 | NUR ---
Patient states doesn't need to urinate currently. I encouraged her to drink more water. I refilled water with ice water as requested by patient. Bladder scan shows 142ml. Patient visitors leaving.
--- NOTE | 2019-12-24 14:38 | NUR ---
I WAS TOLD IN REPORT THAT THE PITT CATHETER WAS REMOVED AT APPROXIMATELY 0600 THIS MORNING.
--- NOTE | 2019-12-24 14:39 | NUR ---
PATIENT UP TO BATHROOM AND VOIDED 200ML INTO MEASURING HAT. ALSO SHE ACCIDENTALY DROPPED THE LARGE PERIPAD INTO THE HAT WHICH ALSO HAD URINE ABSORBED INTO IT.
--- NOTE | 2019-12-24 14:50 | NUR ---
DR Pastrana in to see patient. I went over vital signs and urine output with MD and patient.
--- NOTE | 2019-12-24 15:28 | NUR ---
PT ARRIVED FROM CCU, AMB SBA. PT ALERT AND ORIENTED TO ALL. DENIES PAIN, NAUSEA OR OTHER CONCERN AT THIS TIME. EDUCATED ON POC AND ROOM. QUESTIONS ANSWERED. IV INFUSING WNL. CALL LIGHT WITHIN REACH.
--- NOTE | 2019-12-24 17:20 | NUR ---
PT SITTING UP IN RECLINER EATING DINNER. DENIES PAIN OR OTHER NEEDS OR CONCERNS AT THIS TIME. CALL LIGHT WITHIN REACH.
--- NOTE | 2019-12-24 17:31 | NUR ---
PATIENT SITTING UP IN CHAIR. VITAL SIGNS AND I&O DONE. CALL LIGHT WITHIN REACH. NO OTHER NEEDS AT THIS TIME
--- NOTE | 2019-12-24 19:10 | NUR ---
BEDSIDE REPORT RECEIVED FROM NANCY BERGER. pt UP AMBULATING IN HALLWAY. DENIES ANY PAIN. pt BACK IN BED. FAMILY IN ROOM. CALL LIGHT IN REACH. IV ANTIBIOTIC INFUSING WNL ORDERED.
--- NOTE | 2019-12-24 19:14 | NUR ---
PT ADELAIDE ORTIZ WITH MOTHER, BASSAM WELL.
--- NOTE | 2019-12-24 21:52 | NUR ---
pt SLEEPING, AWAKENS TO VOICE. DENIES ANY PAIN. CBG 327, SS INSULIN ADMINISTERED. DIABETIC EDUCATION PROVIDED. DRESSING CHANGE RYAN RECTAL ABCESS ORDERED. ASSESSMENT COMPLETE. IV ANTIBIOTIC INFUSING WNL ORDERED. CALL LIGHT IN REACH.
--- NOTE | 2019-12-25 00:15 | NUR ---
CHECKED ON pt. RESTING IN BED WITH EYES CLOSED. BREATHING EQUAL AND UNLABORED. LIGHTS OFF IN ROOM.
--- NOTE | 2019-12-25 01:18 | NUR ---
pt BACK IN BED AFTER VOID. DENIES PAIN. IV ANTIBIOTIC INFUSING WNL ORDERED. URINAL EMPTIED. NO ADDITIONAL REQUESTS. CALL LIGHT IN REACH.
--- NOTE | 2019-12-25 05:45 | NUR ---
pt AWAKE IN ROOM. ASSESSMENT COMPLETE. DRESSING CHANGED DUE TO BOWEL MOVEMENT. IVF INFUSING WNL ORDERED. CALL LIGHT IN REACH. ICE WATER PROVIDED. VSS.
--- NOTE | 2019-12-25 06:26 | NUR ---
pt RESTED WELL ON AND OFF THIS SHIFT. UP AMBULATING IN HALLWAY INDEPENDENTLY. DRESSING CHANGE TWICE THIS SHIFT PER ORDER. TWO SEMI LIQUID BMS. IVF INFUSING WNL. CBG 327 AT BED TIME. SS INSULIN. VOIDING QS.
--- NOTE | 2019-12-25 08:40 | NUR ---
PT SITTING UP IN RECLINER. ATE ALL OF BREAKFAST BASSAM WELL. SBA TO RESTROOM HAD LARGE SOFT BM. PT DENIES PAIN. REQUIRED ASSISTANCE TO WIPE. DRESSING FELL OFF WHILE UP TO RESTROOM. REDRESSED AT THIS TIME. PT SITTING UP IN RECLINER. CALL LIGHT WITHIN REACH.
--- NOTE | 2019-12-25 10:20 | NUR ---
PT ADELAIDE ORTIZ INDEPENDENTLY, BASSAM WELL.
--- NOTE | 2019-12-25 12:45 | NUR ---
PT SITTING UP IN RECLINER EATING LUNCH, BASSAM WELL. VISITING WITH MOTHER AT BEDSIDE. DENIES PAIN OTHER OTHER CONCERNS AT THIS TIME. CALL LIGHT WITHIN REACH.
--- NOTE | 2019-12-25 13:51 | NUR ---
PT SITTING IN CHAIR, EATING AND FAMILY IN RM EATING LUNCH ALSO. PT STATED SHE FEELS SO MUCH BETTER, DIFFERENT ISSUE THIS TIME FROM LAST ADMISSION, BUT FELT SHE WAS GAINING QUICKLY. THANKED ME FOR COMING BY, GAVE BLESSING. WILL FOLLOW NEEDED
--- NOTE | 2019-12-25 14:56 | NUR ---
PT LYING IN BED TRYING TO TAKE A NAP. REQUESTS TO TAKE SHOWER LATER "CLOSER TO BED TIME." DENIES FURTHER NEEDS. CALL LIGHT WITHIN REACH.
--- NOTE | 2019-12-25 18:47 | NUR ---
ATTEMPTED TO START VANCO BUT PT REPORTED SEVERE PAIN AT IV SITE AND NOTED REDNESS AND INFLAMMATION. INFUSION STOPPED AND IV DC'D. CATH TIP INTACT. SARAY CRUZ ATTEMPTING NEW IV AT THIS TIME.
--- NOTE | 2019-12-25 19:20 | NUR ---
BEDSIDE REPORT RECEIVED FROM NANCY BERGER. pt DENIES PAIN AT THIS TIME. SBA TO RESTROOM FOR SHOWER. FLOAT RN NOW IN ROOM FOR IV START.
--- NOTE | 2019-12-25 21:19 | NUR ---
pt ASSESSMENT COMPLETE. DRESSING CHANGE ORDERED. pt RATES PAIN 6-7/10 IN BUTTOCK AREA, "STINGING". PRN TYLENOL ADMINISTERED. pt DENIES ADDITIONAL PAIN MEDICATIONS. IV ANTIBIOTIC INFUSING WNL ORDERED. CBG 214. SS INSULIN ADMINISTERED ORDERED. CALL LIGHT IN REACH. LIGHTS OFF IN ROOM.
--- NOTE | 2019-12-25 23:29 | NUR ---
CHECKED ON pt. RESTING IN BED WITH EYES CLOSED, BREATHING UNLABORED. IVF INFUSING WNL ORDERED.
--- NOTE | 2019-12-26 02:27 | NUR ---
IN pt ROOM FOR IV ANTIBIOTIC ADMINISTRATION. pt AWAKE, BACK TO BED AFTER VOID AND LOOSE BM. GAUZE NOT IN PLACE AFTER TOILETING, PACKING IN PLACE. DRESSING AND PACKING CHANGED, BUTTOCKS CLEANED. ASSESSMENT COMPLETE. IV ANTIBIOTIC INFUSING WNL ORDERED. CALL LIGHT IN REACH. NO ADDITIONAL REQUESTS.
--- NOTE | 2019-12-26 05:09 | NUR ---
pt AWAKENS TO VOICE FOR ANTIBIOTIC ADMINSITRATION. SBA TO RESTROOM FOR VOID AND BACK TO BED. VSS. CALL LIGHT IN REACH. NO ADDITIONAL REQUESTS.
--- NOTE | 2019-12-26 05:22 | NUR ---
pt INDEPENDENT IN ROOM. RESTED WELL THIS SHIFT. VOIDING QS. IVF INFUSING WNL NEW IV SITE LEFT AC, IV SITE INFILTRATION RIGHT FOREARM AT START OF SHIFT. DRESSING CHANGE TWICE THIS SHIFT. EDUCATION TO pt FOR NOTIFYING RN IF DRESSING FALLS OFF WITH CLEANING AFTER BMS. LOOSE BM THIS SHIFT. IV ANTIBIOTICS.
--- NOTE | 2019-12-26 06:54 | NUR ---
IN pt ROOM ASSESSING WOUND. EDUCATION PROVIDED TO pt REGARDING DIABETIC CARE IMPORTANCE AND WOUND CARE. QUESTIONS ANSWERED.
--- NOTE | 2019-12-26 07:34 | NUR ---
REPORT RECIEVED FROM MAID HOUSEKEEPER RNNELSON
--- NOTE | 2019-12-26 07:57 | NUR ---
PATIENT RESTING IN BED. PATIENT SAID THAT MAYBE SHE WILL TAKE A SHOWER TODAY. CALL LIGHT WITHIN REACH. NO OTHER NEEDS AT THIS TIME
--- NOTE | 2019-12-26 08:12 | NUR ---
MORNING ASSESSMENT DONE. PATIENT UP TO CHAIR FOR BREAKFAST. PATIENT REPORTS MINIMAL PAIN TO RIGHT BUTTOCK, REDNESS IS MINIMAL, DRAINAGE IS MINIMAL. DISCUSSED WITH PATIENT HAVING A SHOWER AFTER MORNING ABX INFUSION IS FINISHED, PATIENT ENDORSES DESIRE TO GO HOME TODAY.
--- NOTE | 2019-12-26 08:20 | NUR ---
Spoke with Dr. Sung, orders written for dc. He would like pt to go home with HH. Pt walking in colon with IV pump. Wanting to go home. Let her know Dr. Pastrana needs to sign of and check her meds.
--- NOTE | 2019-12-26 08:21 | NUR ---
PATIENT SITTING UP IN CHAIR TAKING HER BREAKFAST. RN IN ROOM. LINENS CHANGED. SETS UP BATHROOM FOR SHOWER. CALL LIGHT WITHIN REACH. NO OTHER NEEDS AT THIS TIME
--- NOTE | 2019-12-26 09:11 | NUR ---
PATIENT SITTING UP IN CHAIR. VITAL SIGNS AND I&O DONE. CALL LIGHT WITHIN REACH. NO OTHER NEEDS AT THIS TIME
--- NOTE | 2019-12-26 09:24 | NUR ---
PATIENT GAVE SELF LANTUS INJECTION IN RIGHT ABDOMEN. PATIENT UP TO AMBULATE MULTIPLE LAPS IN HALLWAY.
--- NOTE | 2019-12-26 10:20 | NUR ---
F2f, orders, clinical notes, wound care orders, face sheet scanned to [facility] at patients request as they are closer.
[2019-12-26] MEDS ORDERED: DOXYCYCLINE HY100 MG PO (10:42)
--- NOTE | 2019-12-26 10:50 | DS ---
[facility] [address] [place], [place] [address] Signed ADMISSION DATE: 12/22/2019 DISCHARGE DATE: 12/26/2019 FINAL DIAGNOSES: 1. Right gluteal abscess. 2. Pruritus ani. 3. Medical noncompliance. HISTORY OF PRESENT ILLNESS: Mini is a 44-year-old, obese, diabetic female, who unfortunately is medically noncompliant. She came to us in July of 2019 with recurrent left groin abscess. That required incision and drainage. She had grown out gram-positive cocci and gram-positive bacilli, but it never speciated. She had been sent home on doxycycline and clindamycin. She had done quite well. She is medically noncompliant and had to have our Internal Medicine Service particularly with respect to her diabetes. She had been switched from oral hypoglycemic medications over to insulin. Unfortunately, she has not been taking her insulin. She came back to us this time with significant pain around the perineum and anus and swelling just to the right of the gluteal crease. HOSPITAL COURSE: Mini was admitted as above and taken to the operating room the following day. She was quite septic the night before and required significant amount of fluids and insulin to correct her hyperglycemia. Her lactic acid had been up around 2.5. We incised and drained her abscess in the right gluteal area and drained out pus with deep wound cultures. It has grown out gram-positive cocci once again. Again, no speciation. She had been on vancomycin and Unasyn for 4 days now. She is markedly improved. We have used Lotrisone cream around her gluteal crease, anus, perineum and vulva, and it is all markedly improved at this time. She looks and feels much better. The induration and erythema are almost gone. Of course, there is no drainage or odor at this point. Consequently, we are going to be discharging her to home today. DISCHARGE PLANS AND MEDICATIONS: Mini is going to be discharged to home again with doxycycline and clindamycin. We used doxycycline 100 mg p.o. b.i.d. for 10 days and clindamycin 300 mg p.o. t.i.d. for 10 days. Also, we will have our Internal Medicine Service review her home medications with her including the insulin. She has had diabetic teaching here in the office. We are going to contact Home Health Care to stop by the house once or twice to make sure she is being compliant and her mother is also available to her. At this point, we are going to discontinue the wound packing and will simply cover that with a dry women's peripad in her underwear and she will shower and bathe twice a day with soap and water directly into the wound. She will apply the Lotrisone cream around the wound and down the Electronically Signed By: RAMOS LANDIN MD 12/26/19 1050 PATIENT NAME: MINI LANGSTON DISCHARGE SUMMARY DATE OF : 75 REPORT #: [id number] PHYSICIAN: RAMOS LANDIN MD PCP: DIMITRY GELLER MD REPORT IS CONFIDENTIAL AND NOT TO BE RELEASED WITHOUT AUTHORIZATION [address] [address] Signed gluteal crease around the anus, perineum, and vulva. We will do that for 10 days as well. In the meantime, she is welcome to perform her activities of daily living including walking up and down stairs and showering and bathing as usual. In a few days, she is welcome to return to work. She will follow up in my office in about a week. She will follow up with her primary care provider in the next 1-3 weeks. She has expressed understanding and agrees above plan. Ramos Landin MD ALB/MODL /[id number] cc: MD Gennaro Rodriguez DO Lohith Veerappa Reddy, MD Copies: RAMOS LANDIN MD, JAMES D DO REDDY, LOHITH VEERAPPA MD ~ Electronically Signed By: RAMOS LANDIN MD 12/26/19 1050 PATIENT NAME: MINI LANGSTON DISCHARGE SUMMARY DATE OF : 75 REPORT #: [id number] PHYSICIAN: RAMOS LANDIN MD PCP: DIMITRY GELLER MD REPORT IS CONFIDENTIAL AND NOT TO BE RELEASED WITHOUT AUTHORIZATION
--- NOTE | 2019-12-26 11:15 | NUR ---
DISCUSSION WITH PT AND HER MOTHER REGARDING HER ABSCESS AND HER ABILITY TO UNDERSTAND IT AND ALL. PT STATES UNDERSTANDING STATING THAT SHE HAD ANOTHER ONE IN . TELLS ME SHE LIVES WITH HER MOTHER AND FATHER. DID ASK IF SHE WOULD BE ABLE TO GO SWIMMING AT THE [employer]. I TOLD HER I WOULD HOLD OFF FOR HER SAFETY UNTIL SHE SPOKE WITH HER PCP OR SURGEON. WAS SATISFIED WITH THAT ANSWER. DENIED FURTHER QUESTIONS.
--- NOTE | 2019-12-26 11:21 | NUR ---
PATIENT SITTING UP IN CHAIR. RN AND MOM IN ROOM. FINAL VITAL SIGNS WERE OBTAINED PRIOR TO DISCHARGE FROM THE UNIT
--- NOTE | 2019-12-26 11:33 | NUR ---
PATIENT DISCHARGE INSTRUCTIONS COMPLETE, GIVEN WHEELCHAIR RIDE TO FRONT DOOR.
--- NOTE | 2019-12-26 14:08 | NUR ---
PT WAS UP AMBULATING IN [place] WITH FWW AND TOLD ME HOW MUCH BETTER SHE FEELS. PT THINKS SHE WILL DC TODAY. GAVE ENCOURAGEMENT, AND WILL FOLLOW NEEDED
[2019-12-27] MEDS ORDERED: LEVAQUIN750 MG PO (11:22)
== END 2019-12-26 11:30 | disposition home or self-care (01) | DRG 854 ==
LOC: ED 10:35 → MS 10:37 → CCU 13:38 → MS 12-24 15:26
PROVIDERS: ADMIT Colon & Rectal Surgery
PROC: 0J990ZZ Drainage of Buttock Subcutaneous Tissue and Fascia, Open Approach (ICD-10-PCS; principal; 2019-12-23 08:16)
DX: A41.89 Other specified sepsis (principal); L02.31 Cutaneous abscess of buttock; E86.0 Dehydration; J42 Unspecified chronic bronchitis; E11.65 Type 2 diabetes mellitus with hyperglycemia; F17.210 Nicotine dependence, cigarettes, uncomplicated; K21.9 Gastro-esophageal reflux disease without esophagitis; R39.15 Urgency of urination; F41.8 Other specified anxiety disorders; E66.9 Obesity, unspecified; Z91.14 Patient's other noncompliance with medication regimen; Z88.8 Allergy status to other drugs, medicaments and biological substances; Z88.2 Allergy status to sulfonamides; Z79.899 Other long term (current) drug therapy; Z79.4 Long term (current) use of insulin; Z68.38 Body mass index [BMI] 38.0-38.9, adult
CPT/HCPCS: 00400; 36415; 51798; 74177; 80048; 80053; 80202; 81001; 83036; 83605; 83735; 83880; 84100; 84134; 84703; 85025; 94640; 94760; 96361; 96374; 96375; 99284-25; 99406; C9113; G0378; J0295; J1100; J1650; J1815; J1885; J2001; J2370; J2405; J2543; J2550; J2704; J3010; J3370; J3475; J7040; J7060; J7121; Q9967

== ENCOUNTER 2022-01-28 08:04 | Emergency (ER) | payer OTHER ==
[~2022-01-28] VITALS: Ht 157.5 cm; Wt 96.6 kg
[~2022-01-28 08:04] MED LIST changes: +BENZONATATE100 MG PO; +CHANTIX1 MG PO; +CINNAMON500 MG PO; +LEVAQUIN750 MG PO; +NOVOLOG100 UNIT/2 SQ; +TURMERIC500 M2 PO; +VENTOLIN HFA18 GM INH
[2022-01-28] MEDS ORDERED: COMBIVENT RESPIM4 GM INH (10:54)
[2022-01-28] MEDS ORDERED: PREDNISONE20 MG PO (10:54)
--- NOTE | 2022-01-29 14:54 | EKG ---
[facility] [address] [facility] [place], [place] [address] Signed Sinus tachycardia Cannot rule out Anterior infarct , age undetermined Abnormal ECG When compared with ECG of 13-APR-2019 00:31, No significant change was found Confirmed by DIMITRY GELLER MD ([id number]) on 01/29/2022 2:53:58 PM Electronically Signed By: DIMITRY GELLER MD 01/29/22 1454 PATIENT NAME: KIANSEN Electrocardiogram DATE OF : 75 PHYSICIAN: DIMITRY GELLER MD REPORT #: [id number] REPORT IS CONFIDENTIAL AND NOT TO BE RELEASED WITHOUT AUTHORIZATION
== END 2022-01-28 11:36 | disposition home or self-care (01) ==
LOC: ED 08:04
DX: J45.901 Unspecified asthma with (acute) exacerbation (principal); Z20.822 Contact with and (suspected) exposure to COVID-19; R07.89 Other chest pain; E11.9 Type 2 diabetes mellitus without complications; F17.200 Nicotine dependence, unspecified, uncomplicated; Z88.2 Allergy status to sulfonamides; Z88.8 Allergy status to other drugs, medicaments and biological substances; Z79.899 Other long term (current) drug therapy; Z79.4 Long term (current) use of insulin
CPT/HCPCS: 36415; 71045; 80053; 83880; 84484; 85025; 85379; 93005; 93010; 99285-25; C9803; J7512; U0003

== ENCOUNTER 2023-11-30 18:04 | Emergency (ER) | payer OTHER ==
[~2023-11-30] VITALS: Ht 157.5 cm; Wt 134.9 kg
[~2023-11-30 18:04] MED LIST changes: +AMOX TR-K CLV1 EAC1 PO; +COMBIVENT RESPIM4 GM INH; +HYDROCODON-ACE1 EA10 PO; +PERIDEX473 M1 MM; +ROSUVASTATIN CA10 MG PO; +VICTOZA 3-0.6 MG/0.1 SUB-Q
[2023-11-30] MEDS ORDERED: FLUOXETINE HCL40 MG PO (18:23)
[2023-11-30 18:40] LABS: HEMATOCRIT 47.5 % (35.0-50.0); HEMOGLOBIN 15.6 g/dL (12.0-18.0)
[2023-11-30 18:43] LABS: BASOPHILS 1.5 % (0-2); EOSINOPHILS 2.3 % (0-6); LYMPHOCYTES 19.7 % (24-44); MCH 30.2 (27-36); MCHC 32.9 g/dl (30-36); MCV 91.8 fl (81-99); MONOCYTES 4.9 % (0-12); NEUTROPHILS 71.6 % (39-80); PLATELET COUNT 380 K/uL (140-440); RBC 5.18 M/ul (4.3-5.7); RDW 14.8 (10.5-15.0)
[2023-11-30 18:53] LABS: ALBUMIN 3.1 g/dL (3.4-5.0); ALBUMIN/GLOBULIN RATIO 0.69 (1.1-2.4); BILIRUBIN, TOTAL 0.4 ng/dL (0.2-1.0); BUN/CREATININE RATIO 11.62 (6.0-28.6); CALCIUM 8.7 mg/dL (8.5-10.1); CREATININE, SERUM 0.86 mg/dL (0.55-1.02); PROTEIN, TOTAL 7.6 g/dL (6.4-8.2)
[2023-11-30 19:23] LABS: PH, VENOUS 7.451 (7.31-7.41)
[2023-11-30 20:06] LABS: INFLUENZA B NAA NEGATIVE (NEGATIVE); RESPIRATORY SYNCYTIAL VIR NAA NEGATIVE (NEGATIVE)
[2023-11-30] MEDS ORDERED: PAXLOVID 300-11 EAC1 PO (20:17)
[2023-11-30] MEDS ORDERED: CYCLOBENZAPRINE10 MG PO (20:20)
[2023-11-30] MEDS ORDERED: ONDANSETRON ODT8 MG PO (20:20)
[2023-11-30 20:52] VITALS: BP 118/62
== END 2023-11-30 20:54 | disposition home or self-care (01) ==
LOC: ED 18:04
PROVIDERS: Emergency Medicine; Family Medicine
DX: U07.1 COVID-19 (principal); E11.9 Type 2 diabetes mellitus without complications; J45.909 Unspecified asthma, uncomplicated; F17.200 Nicotine dependence, unspecified, uncomplicated; Z88.8 Allergy status to other drugs, medicaments and biological substances; Z88.2 Allergy status to sulfonamides; Z79.4 Long term (current) use of insulin; Z79.85 Long-term (current) use of injectable non-insulin antidiabetic drugs; Z79.899 Other long term (current) drug therapy
CPT/HCPCS: 36415; 71045; 80053; 82010; 82803; 83735; 84703; 85025; 87502; 99283-25; A9270; U0002